=== PATIENT | female | born 1935 | race Caucasian/White ===

== ENCOUNTER 2018-01-15 21:02 | Inpatient (IN) | payer MEDICARE, OTHER ==
[~2018-01-15] VITALS: Ht 165.1 cm; Wt 48.7 kg
[~2018-01-15 21:02] MED LIST: BENA5TAB PO
--- NOTE | 2018-01-15 21:18 | NUR ---
[facility] EMS FROM [facility] FOR HEMATOMA ABOVE LEFT EYE S/P GLF. LEFT FOREARM SKIN TEAR. PT AOX3 NOTED WITH PERIODS OF CONFUSION (BASELINE PER PA) RR EVEN AND UNLABORED. NO SOB NOTED. NAD NOTED. NO NVD AT THIS TIME. PT GOWNED AND PLACED ON MONITOR WAITING FOR MD SCHILLING.
--- NOTE | 2018-01-15 21:30 | NUR ---
PT RETURNED FROM CT.
--- NOTE | 2018-01-15 22:20 | NUR ---
PT RETURNED FROM CT.
--- NOTE | 2018-01-15 22:32 | NUR ---
BS CHECK 69. DR. JACINTO MADE AWARE
--- NOTE | 2018-01-15 22:34 | NUR ---
RADOLOGY AT BEDSIDE FOR CXR
--- NOTE | 2018-01-15 22:37 | NUR ---
BS RECHECK 64. DR. JACINTO MADE AWARE
[2018-01-15] MEDS ORDERED: ASPI-605 PO (22:38)
[2018-01-15] MEDS ORDERED: CHOL100040 PO (22:38)
[2018-01-15] MEDS ORDERED: BENZ0.5T43 PO (22:38)
[2018-01-15] MEDS ORDERED: ACET-868 PO (22:38)
[2018-01-15 22:55] LABS: BASOPHILS % (AUTO) 0.5 % (0.0-2.0); EOSINOPHILS % (AUTO) 1.6 % (0.0-6.0); HEMATOCRIT 38 % (33-45); HEMOGLOBIN 12.6 g/dL (11.5-14.8); LYMPHOCYTES # (AUTO) 1.5 /CMM (0.8-4.8); LYMPHOCYTES % (AUTO) 25.6 % (20.0-44.0); MEAN CORPUSCULAR HGB CONC 33 g/dl (31.0-36.0); MEAN CORPUSCULAR VOLUME 93 fL (82-100); MONOCYTES # (AUTO) 0.6 /CMM (0.1-1.30); MONOCYTES % (AUTO) 9.6 % (2.0-12.0); NEUTROPHILS # (AUTO) 3.7 /CMM (1.8-8.9); NEUTROPHILS % (AUTO) 62.7 % (43.0-81.0); PLATELET COUNT (AUTO) 158 /CMM (150-450); RDW COEFFICIENT OF VARIATION 13.3 (11.5-15.0); RED BLOOD CELL COUNT(AUTO) 4.06 MIL/uL (4.0-5.2)
[2018-01-15] MEDS ORDERED: DEXTROSE 50%-WATER 50 ML DISP.SYRIN ONE (22:55)
[2018-01-15] MEDS ORDERED: DEXTROSE 50%-WATER 50 ML DISP.SYRIN IVP ONE (23:00)
[2018-01-15 23:05] LABS: CALCIUM, SERUM 10.1 mg/dL (8.5-10.1); CARBON DIOXIDE 32 mmol/L (21-32); CHLORIDE 105 mmol/L (98-107); GLUCOSE 67 mg/dL (74-106); POTASSIUM 4.7 mmol/L (3.5-5.1); SODIUM SERUM 139 mmol/L (136-145); UREA NITROGEN, BLOOD 25 mg/dL (7-18)
[2018-01-15 23:09] LABS: INR 0.99 (0.87-1.13)
[2018-01-15 23:11] LABS: ALANINE AMINOTRANSFERASE 32 U/L (12-78); ALBUMIN 3.2 g/dL (3.4-5.0); ALKALINE PHOSPHATASE 77 U/L (46-116); ASPARTATE AMINOTRANSFERASE 26 U/L (15-37); BILIRUBIN,DIRECT 0.1 mg/dL (0.0-0.2); BILIRUBIN,TOTAL 0.4 mg/dL (0.2-1.0); TOTAL PROTEIN, SERUM 6.2 g/dL (6.4-8.2)
[2018-01-15 23:13] LABS: TROPONIN I < 0.017 ng/mL (0.00-0.056)
--- NOTE | 2018-01-15 23:22 | NUR ---
URINE COLLECTED. SENT TO LAB
--- NOTE | 2018-01-15 23:23 | NUR ---
BS RECHECK 141. DR. JACINTO MADE AWARE
[2018-01-15 23:30] LABS: APPEARANCE,URINE CLEAR (CLEAR); BILIRUBIN,URINE NEGATIVE (NEGATIVE); BLOOD, URINE NEGATIVE Ery/uL (NEGATIVE); COLOR,URINE YELLOW (YELLOW); KETONES,URINE NEGATIVE (NEGATIVE); LEUKOCYTE ESTERASE ,URINE 2+ (NEGATIVE); NITRITE, URINE NEGATIVE (NEGATIVE); PH,URINE 6.5 (5.0-8.0); PROTEIN,URINE NEGATIVE (NEGATIVE); UGLUCOSE TRACE mg/dL (NEGATIVE); UROBILINOGEN,URINE 0.2 EU/dL (0.2)
--- NOTE | 2018-01-15 23:44 | NUR ---
REPORT GIVEN TO TAMMIE MOYER FOR TELE BED 307-2.
[2018-01-15 23:51] LABS: BACTERIA,URINE None seen /HPF (None Seen); RBC,URINE NONE SEEN /HPF (0-2); SQUAMOUS EPITHELIAL CELL,UR Few /HPF (None Seen); WBC,URINE 0-2 /HPF (0-3)
[2018-01-16] VITALS (7 sets, daily range): BP systolic 117–153; BP diastolic 56–94
--- NOTE | 2018-01-16 00:08 | NUR ---
PT TRANSFERRED PER ACLS PROTOCOL.
--- NOTE | 2018-01-16 00:10 | NUR ---
RN NOTES RECEIVED PT. FROM ER WITH DX. OF SYNCOPE AND HYPOGLYCEMIA, S/P IN THE SNF PT. IS A/OX2-3, SITTER AT BEDSIDE, SB ON TELE MONITOR HR -43-MD IS AWARE, ADMISSION INSTRUCTION WAS RENDERED, CALL LIGHT WITHIN REACH, SIDERAILSUPX2, CONTINUE TO MONITOR
[2018-01-16] MEDS ORDERED: MAG HYDROX/AL HYDROX/SIMETH 30 ML UDC PO PRN (00:30)
[2018-01-16] MEDS ORDERED: HYDROCODONE/APAP 5/325MG 1 EACH TABLET PO PRN (00:30)
[2018-01-16] MEDS ORDERED: ZOLPIDEM TARTRATE 5 MG TABLET PO PRN (00:30)
[2018-01-16] MEDS ORDERED: ONDANSETRON HCL/PF 4 MG/2 ML VIAL IVP PRN (00:30)
[2018-01-16] MEDS ORDERED: ACETAMINOPHEN 325 MG TABLET PO PRN ×2 (00:30)
[2018-01-16] MEDS ORDERED: MAGNESIUM HYDROXIDE 30 ML UDC PO PRN (00:30)
[2018-01-16] MEDS ORDERED: Z GUARD REMEDY 2 OZ OINT TP PRN (00:30)
--- NOTE | 2018-01-16 07:13 | NUR ---
MS/RN Patient received Patient received from cook night. A/O X2, no respiratory distress noted, vital sings within normal range. Safety measures in places, siderails X3 in upright position, bed alarm switched on, call light within reach. Will continue to monitor and ensure safety.
[2018-01-16] MEDS ORDERED: BENAZEPRIL HCL 5 MG TABLET PO SCH (09:00)
--- NOTE | 2018-01-16 09:00 | NUR ---
MS/RN Medications Morning medications administered as ordered, unable to scan name band, new band requested from admitting. Patient able to state full name, date of .
--- NOTE | 2018-01-16 09:41 | NUR ---
MS/RN S/B Dr Godinez Seen by Dr Godinez: -orthostatic blood pressure -remains SB on monitor without pauses, no permeant pacemaker need identified yet -acute renal failure - hydrate -hypertension - continue with current dosage of benazepril
[2018-01-16] MEDS: ASPIRIN EC 81 MG TABLET.DR PO SCH (09:46)
[2018-01-16] MEDS: BENAZEPRIL HCL 10 MG TABLET PO SCH (09:46)
[2018-01-16 10:31] LABS: BASOPHILS % (AUTO) 0.5 % (0.0-2.0); EOSINOPHILS % (AUTO) 1.8 % (0.0-6.0); HEMATOCRIT 38 % (33-45); HEMOGLOBIN 12.8 g/dL (11.5-14.8); LYMPHOCYTES # (AUTO) 1.1 /CMM (0.8-4.8); LYMPHOCYTES % (AUTO) 21.1 % (20.0-44.0); MEAN CORPUSCULAR HGB CONC 34 g/dl (31.0-36.0); MEAN CORPUSCULAR VOLUME 93 fL (82-100); MONOCYTES # (AUTO) 0.5 /CMM (0.1-1.30); MONOCYTES % (AUTO) 9.1 % (2.0-12.0); NEUTROPHILS # (AUTO) 3.4 /CMM (1.8-8.9); NEUTROPHILS % (AUTO) 67.5 % (43.0-81.0); PLATELET COUNT (AUTO) 157 /CMM (150-450); RDW COEFFICIENT OF VARIATION 13.6 (11.5-15.0); RED BLOOD CELL COUNT(AUTO) 4.08 MIL/uL (4.0-5.2); WHITE BLOOD COUNT (AUTO) 5.1 K/uL (4.3-11.0)
[2018-01-16 10:41] LABS: CARBON DIOXIDE 35 mmol/L (21-32); CHLORIDE 106 mmol/L (98-107); CREATININE 0.8 mg/dL (0.6-1.3); GLUCOSE 107 mg/dL (74-106); POTASSIUM 4.2 mmol/L (3.5-5.1); SODIUM SERUM 141 mmol/L (136-145); UREA NITROGEN, BLOOD 21 mg/dL (7-18)
[2018-01-16 10:46] LABS: ALANINE AMINOTRANSFERASE 29 U/L (12-78); ALBUMIN 2.8 g/dL (3.4-5.0); ALKALINE PHOSPHATASE 71 U/L (46-116); ASPARTATE AMINOTRANSFERASE 24 U/L (15-37); BILIRUBIN,TOTAL 0.5 mg/dL (0.2-1.0); MAGNESIUM 2.7 mg/dL (1.8-2.4); PHOSPHORUS 2.5 mg/dL (2.5-4.9); TOTAL PROTEIN, SERUM 5.9 g/dL (6.4-8.2)
[2018-01-16 10:57] LABS: CHOLESTEROL 168 mg/dL (<200); HDL CHOLESTEROL 67 mg/dL (40-60); LDL 91 mg/dL (0-99); THYROID STIMULATING HORMONE 2.361 uIU/mL (0.358-3.74); TRIGLYCERIDES 76 mg/dL (30-150)
--- NOTE | 2018-01-16 11:30 | NUR ---
MS/RN S/B Dr Thapa Seen by Dr Thapa - labs ordered for tomorrow.
--- NOTE | 2018-01-16 15:02 | NUR ---
MS/RN PT Evaluated by physical therapist - able to ambulate using walker in hallway with standby assist.
--- NOTE | 2018-01-16 18:01 | NUR ---
MS/RN End note Patient remains in stable condition, will endorse to shift lab technician.
--- NOTE | 2018-01-16 19:20 | NUR ---
TELE/RN OPENING NOTES PT RECEIVED AWAKE, RESTING COMFORTABLY IN BED. ON 2L O2 VIA NC, BREATHING EVEN AND UNLABORED. NO S/S OF SOB OR PAIN AT THIS TIME. ON TELE MONITOR SHOWING SB, HR AT 51. SRINIVASAN IV PATENT AND INTACT. BED IN LOW/LOCKED POSITION WITH CALL LIGHT IN REACH. SIDE RAILS UPX2. WILL CONTINUE TO MONITOR
[2018-01-16] MEDS: IV NS 0.9% 1,000 ML IV PRN (20:15)
--- NOTE | 2018-01-16 20:15 | NUR ---
TELE/RN NOTES PT C/O NAUSEA. ADMINISTERED PRN ZOFRAN ORDERED. WILL MONITOR FOR EFFECTIVENESS
[2018-01-16] MEDS: BENZTROPINE MESYLATE (1 MG) 1 MG TABLET PO SCH (21:30)
[2018-01-17] VITALS: BP 130/60
[2018-01-17 04:00] VITALS: BP 134/53
[2018-01-17 06:18] LABS: BASOPHILS % (AUTO) 0.6 % (0.0-2.0); EOSINOPHILS % (AUTO) 1.9 % (0.0-6.0); HEMATOCRIT 36 % (33-45); HEMOGLOBIN 12.3 g/dL (11.5-14.8); LYMPHOCYTES # (AUTO) 1.8 /CMM (0.8-4.8); LYMPHOCYTES % (AUTO) 29.8 % (20.0-44.0); MEAN CORPUSCULAR HGB CONC 34 g/dl (31.0-36.0); MEAN CORPUSCULAR VOLUME 93 fL (82-100); MONOCYTES # (AUTO) 0.5 /CMM (0.1-1.30); MONOCYTES % (AUTO) 8.7 % (2.0-12.0); NEUTROPHILS # (AUTO) 3.7 /CMM (1.8-8.9); PLATELET COUNT (AUTO) 155 /CMM (150-450); RDW COEFFICIENT OF VARIATION 13.4 (11.5-15.0); WHITE BLOOD COUNT (AUTO) 6.2 K/uL (4.3-11.0)
[2018-01-17 06:41] LABS: TROPONIN I < 0.017 ng/mL (0.00-0.056)
[2018-01-17 06:45] LABS: ALANINE AMINOTRANSFERASE 26 U/L (12-78); ALBUMIN 2.8 g/dL (3.4-5.0); ALKALINE PHOSPHATASE 66 U/L (46-116); ASPARTATE AMINOTRANSFERASE 23 U/L (15-37); BILIRUBIN,TOTAL 0.4 mg/dL (0.2-1.0); CALCIUM, SERUM 9.7 mg/dL (8.5-10.1); CARBON DIOXIDE 32 mmol/L (21-32); CHLORIDE 107 mmol/L (98-107); CREATININE 0.8 mg/dL (0.6-1.3); GLUCOSE 76 mg/dL (74-106); MAGNESIUM 1.8 mg/dL (1.8-2.4); PHOSPHORUS 2.7 mg/dL (2.5-4.9); POTASSIUM 4.7 mmol/L (3.5-5.1); SODIUM SERUM 140 mmol/L (136-145); TOTAL PROTEIN, SERUM 5.6 g/dL (6.4-8.2); UREA NITROGEN, BLOOD 21 mg/dL (7-18)
[2018-01-17 06:52] LABS: CHOLESTEROL 166 mg/dL (<200); HDL CHOLESTEROL 62 mg/dL (40-60); LDL 89 mg/dL (0-99); TRIGLYCERIDES 91 mg/dL (30-150)
--- NOTE | 2018-01-17 07:15 | NUR ---
TELE/RN CLOSING NOTES PT AWAKE, RESTING IN BED. A/OX3. ON 1L O2, VIA NC, BREATHING EVEN AND UNLABORED. NO SOB OR DISTRESS NOTED. DENIES PAIN. WOUND CARE PROVIDED ORDERED. ON TELE MONITOR SHOWING SB 47. SRINIVASAN IV RUNNING IVF ORDERED. NO SIGNIFICANT CHANGES OVERNIGHT. BED IN LOW/LOCKED POSITION WITH CALL LIGHT IN REACH. SIDE RAILS UPX2 WITH BED ALARM ON FOR SAFETY. ENDORSED TO DAY SHIFT RN BETSY.
--- NOTE | 2018-01-17 07:17 | NUR ---
MS/RN Patient received Patient received from stitcher special machine. Sleeping soundly at this time, appears in no discomfort or distress. Sitter remains in room for safety. Safety measures in place, will continue to monitor and ensure safety.
[2018-01-17 08:00] VITALS: BP_SYST 124; BP_SYST 126; BP_DIAS 59; BP_DIAS 64
[2018-01-17] MEDS: ASPIRIN EC 81 MG TABLET.DR PO SCH (08:23)
[2018-01-17] MEDS: BENAZEPRIL HCL 10 MG TABLET PO SCH (08:23)
--- NOTE | 2018-01-17 09:05 | NUR ---
MS/RN S/B Dr Godinez Seen by Dr Godinez - telemetry discontinued, labs ordered for tomorrow morning.
--- NOTE | 2018-01-17 10:13 | NUR ---
WOUND CARE CONSULT WOUND CARE RECEIVED CONSULT FOR L ARM SKIN TEAR. WOUND CARE WILL DEFER CONSULT AND ALL TREATMENT PLANS TO SURGICAL TEAM WHO ARE CURRENTLY FOLLOWING. PATIENT WITH MELANIE AT 16, ALL PRESSURE ULCER PREVENTION MEASURES NOTED TO BE IN PLACE.
--- NOTE | 2018-01-17 12:30 | NUR ---
MS/transitional care manager Dressing to left forearm changed as ordered.
[2018-01-17] MEDS: IV NS 0.9% 1,000 ML IV PRN (14:29)
--- NOTE | 2018-01-17 15:59 | NUR ---
MS/RN S/B Dr Espitia Seen by Dr Espitia - to continue with IV fluids.
--- NOTE | 2018-01-17 18:09 | NUR ---
MS/RN End note Patient remains in stable condition, all needs attended. Call light within reach, will endorse to senior partner.
[2018-01-17 20:00] VITALS: BP 108/51
--- NOTE | 2018-01-17 20:10 | NUR ---
MS RN NOTE: PATIENT TRANSFERRED TO ROOM 202 WITH ALL BELONGINGS. PATIENT RESTING IN BED, NO ACUTE DISTRESS NOTED. BREATHING EVEN AND UNLABORED, NO SOB NOTED. IV TO RFA IN PLACE, INFUSING NS AT 125ML/HR. ORIENTED PATIENT TO ROOM. BED LOCK AND IN LOWEST POSITION, CALL LIGHT IN REACH. WILL CONTINUE TO MONITOR.
[2018-01-17] MEDS: BENZTROPINE MESYLATE (1 MG) 1 MG TABLET PO SCH (21:30)
--- NOTE | 2018-01-18 03:30 | NUR ---
MS RN NOTE: PATIENT SLEEPING IN BED, NO ACUTE DISTRESS NOTED. BREATHING EVEN AND UNLABORED, NO SOB NOTED. BED LOCKED AND IN LOWEST POSITION, CALL LIGHT IN REACH, WILL CONTINUE TO MONITOR.
--- NOTE | 2018-01-18 06:10 | NUR ---
MS RN NOTE: PATIENT RESTING IN BED, NO ACUTE DISTRESS NOTED. BREATHING EVEN AND UNLABORED, NO SOB NOTED. IV TO RFA IN PLACE, INFUSING NS AT 125ML/HR. IV TO SRINIVASAN IN PLACE. BED LOCK AND IN LOWEST POSITION, CALL LIGHT IN REACH. WILL ENDORSE TO DAY NURSE TO CONTINUE WITH PLAN OF CARE.
[2018-01-18 06:21] LABS: CALCIUM, SERUM 9.4 mg/dL (8.5-10.1); CARBON DIOXIDE 33 mmol/L (21-32); CHLORIDE 107 mmol/L (98-107); CREATININE 0.9 mg/dL (0.6-1.3); GLUCOSE 75 mg/dL (74-106); MAGNESIUM 1.7 mg/dL (1.8-2.4); PHOSPHORUS 2.8 mg/dL (2.5-4.9); POTASSIUM 4.5 mmol/L (3.5-5.1); SODIUM SERUM 141 mmol/L (136-145); UREA NITROGEN, BLOOD 23 mg/dL (7-18)
[2018-01-18 06:26] LABS: BASOPHILS % (AUTO) 0.8 % (0.0-2.0); EOSINOPHILS % (AUTO) 2.4 % (0.0-6.0); HEMATOCRIT 37 % (33-45); HEMOGLOBIN 12.6 g/dL (11.5-14.8); LYMPHOCYTES # (AUTO) 1.3 /CMM (0.8-4.8); LYMPHOCYTES % (AUTO) 28.7 % (20.0-44.0); MEAN CORPUSCULAR HGB CONC 34 g/dl (31.0-36.0); MEAN CORPUSCULAR VOLUME 92 fL (82-100); MONOCYTES # (AUTO) 0.4 /CMM (0.1-1.30); NEUTROPHILS # (AUTO) 2.8 /CMM (1.8-8.9); NEUTROPHILS % (AUTO) 59.1 % (43.0-81.0); PLATELET COUNT (AUTO) 146 /CMM (150-450); RDW COEFFICIENT OF VARIATION 13.4 (11.5-15.0); RED BLOOD CELL COUNT(AUTO) 3.98 MIL/uL (4.0-5.2); WHITE BLOOD COUNT (AUTO) 4.7 K/uL (4.3-11.0)
--- NOTE | 2018-01-18 07:40 | NUR ---
M/S RN - Assessment Patient awake, A/ O x 3, denies pain, no c/o dizziness, not in any form of distress, slept well last night. IVF NS at 125 ml/hr infusing well on the RFA with no signs of infiltration. Labs reviewed noted with low magnesium level today 1.7, will notify Md. Fall and aspiration precautions maintained. All needs attended and met. Will continue with current medical management.
[2018-01-18 08:00] VITALS: BP 136/53
[2018-01-18] MEDS: ASPIRIN EC 81 MG TABLET.DR PO SCH (08:15)
[2018-01-18] MEDS: BENAZEPRIL HCL 10 MG TABLET PO SCH (08:15)
[2018-01-18] MEDS: Magnesium 1GM/D5W 100ML PREMIX 100 ML IV SCH ×2 (10:46→11:50)
[2018-01-18 16:00] VITALS: BP 141/71
--- NOTE | 2018-01-18 17:35 | NUR ---
M/S RN - Discharge Patient feeling better, A/O x 2-3, discharged to [facility] in stable condition. Reviewed discharge instructions with TAMMIE Kim and she verbalized full understanding and all questions answered to her satisfaction. All belongings with the patient and she denies any missing items. VSS, denies pain, afebrile, denies dizziness, no c/o SOB, tolerating room air, no apparent distress seen. No fall/injury during hospital stay. Heplock removed on the RFA and SRINIVASAN both catheter tip intact, no redness and no swelling noted at the site. Photos taken on all skin breakdown. Discharge papers sent with ambulance crew. Daughter Monika aware of discharge.
== END 2018-01-18 17:35 | DRG 73 ==
LOC: ER 21:13 → TELE 23:54 → MED 01-17 09:09 → MEDSG2 01-17 19:15
PROVIDERS: ADMIT Internal Medicine; ATTEND Internal Medicine Nephrology
DX: G90.8 Other disorders of autonomic nervous system (principal); E43 Unspecified severe protein-calorie malnutrition; N17.0 Acute kidney failure with tubular necrosis; E86.0 Dehydration; F03.90 Unspecified dementia, unspecified severity, without behavioral disturbance, psychotic disturbance, mood disturbance, and anxiety; G20 Parkinson's disease; Z68.1 Body mass index [BMI] 19.9 or less, adult; W18.30XA Fall on same level, unspecified, initial encounter; E16.2 Hypoglycemia, unspecified; I10 Essential (primary) hypertension; K21.9 Gastro-esophageal reflux disease without esophagitis; F29 Unspecified psychosis not due to a substance or known physiological condition; Z86.73 Personal history of transient ischemic attack (TIA), and cerebral infarction without residual deficits; S00.83XA Contusion of other part of head, initial encounter; Y92.89 Other specified places as the place of occurrence of the external cause; S51.812A Laceration without foreign body of left forearm, initial encounter; L98.8 Other specified disorders of the skin and subcutaneous tissue; F20.9 Schizophrenia, unspecified; F31.9 Bipolar disorder, unspecified; R13.10 Dysphagia, unspecified
CPT/HCPCS: 36415; 70450-TC; 71045-TC; 72125-TC; 80048-TC; 80053-TC; 80061-TC; 80076-TC; 81000-TC; 82962-TC; 83735-TC; 84100-TC; 84439-TC; 84443-TC; 84484-TC; 85025-TC; 85730-TC; 86850-TC; 87081-TC; 87086-TC; 92521; 93307-TC; 93880-TC; A4606; A6253; J2405; J3475; J7030; L0172; Z7610

== ENCOUNTER 2018-08-09 11:51 | Inpatient (IN) | payer OTHER ==
[2018-08-09] VITALS (24 sets, daily range): BP systolic 126–175; BP diastolic 45–81
[~2018-08-09] VITALS: Ht 167.6 cm; Wt 51.3 kg
[~2018-08-09 11:51] MED LIST changes: +ACET-868 PO; +ASPI-605 PO; +BENZ0.5T43 PO; +CHOL100040 PO
--- NOTE | 2018-08-09 12:00 | NUR ---
PT DEBBY FROM [facility]. GLF, -KO PER EMS REPORT. RIGHT EYEBROW LAC. PT ON MONITOR IN BED 3. WILL CONTINUE TO MONITOR.
[2018-08-09 12:27] LABS: BASOPHILS # (AUTO) 0.1 /CMM (0.0-0.2); BASOPHILS % (AUTO) 0.9 % (0.0-2.0); HEMATOCRIT 45 % (33-45); LYMPHOCYTES # (AUTO) 1.3 /CMM (0.8-4.8); LYMPHOCYTES % (AUTO) 19.7 % (20.0-44.0); MEAN CORPUSCULAR HGB CONC 33 g/dl (31.0-36.0); MEAN CORPUSCULAR VOLUME 95 fL (82-100); MONOCYTES # (AUTO) 0.5 /CMM (0.1-1.30); MONOCYTES % (AUTO) 7.8 % (2.0-12.0); NEUTROPHILS # (AUTO) 4.6 /CMM (1.8-8.9); NEUTROPHILS % (AUTO) 69.6 % (43.0-81.0); PLATELET COUNT (AUTO) 136 /CMM (150-450); RED BLOOD CELL COUNT(AUTO) 4.77 MIL/uL (4.0-5.2); WHITE BLOOD COUNT (AUTO) 6.6 K/uL (4.3-11.0)
[2018-08-09] MEDS ORDERED: ACETAMINOPHEN ES 500 MG TABLET PO ONE (12:30)
[2018-08-09] MEDS ORDERED: TDAP [DIPH/PERTUSSIS/TET] 0.5 ML VIAL IM ONE ×2 (12:30→12:32)
[2018-08-09] MEDS ORDERED: ACETAMINOPHEN ES 500 MG TABLET ONE ×2 (12:32→12:35)
[2018-08-09 12:44] LABS: ALANINE AMINOTRANSFERASE 67 U/L (12-78); ALBUMIN 3.4 g/dL (3.4-5.0); ALKALINE PHOSPHATASE 95 U/L (46-116); ASPARTATE AMINOTRANSFERASE 44 U/L (15-37); BILIRUBIN,DIRECT 0.1 mg/dL (0.0-0.2); BILIRUBIN,TOTAL 0.6 mg/dL (0.2-1.0); CALCIUM, SERUM 10.1 mg/dL (8.5-10.1); CARBON DIOXIDE 34 mmol/L (21-32); CHLORIDE 103 mmol/L (98-107); CREATININE 0.9 mg/dL (0.6-1.3); GLUCOSE 84 mg/dL (74-106); POTASSIUM 4.9 mmol/L (3.5-5.1); SODIUM SERUM 139 mmol/L (136-145); TOTAL PROTEIN, SERUM 6.9 g/dL (6.4-8.2); UREA NITROGEN, BLOOD 26 mg/dL (7-18)
--- NOTE | 2018-08-09 12:49 | NUR ---
PT TAKEN TO RADIOLOGY VIA JENI
--- NOTE | 2018-08-09 13:03 | NUR ---
GUALBERTO, POWER OF CINDER DUMP CRANE OPERATOR, CALLED FOR STATUS. CONTACT INFO FOR ANY UPDATES: [phone].
--- NOTE | 2018-08-09 13:16 | NUR ---
DR FRANKS CALLED AND SPOKE WITH DR HILARIO
--- NOTE | 2018-08-09 13:17 | NUR ---
RADIOLOGY AT BEDSIDE FOR XRAY
[2018-08-09] MEDS ORDERED: ENALAPRILAT INJ (1.25 MG/ML) 1.25 MG/ML VIAL IV STA (13:19)
[2018-08-09] MEDS ORDERED: ENALAPRILAT DIHYD. (2.5MG/ML) 1.25 MG/ML VIAL IV ONE (13:25)
[2018-08-09] MEDS ORDERED: CLON0.1T PO (13:50)
[2018-08-09] MEDS ORDERED: ASPI-1169 PO (13:50)
--- NOTE | 2018-08-09 13:50 | NUR ---
ICU 260
[2018-08-09] MEDS ORDERED: NICARDIPINE IN DEXTROSE,ISO-OS 200 ML IV ONE (14:30)
--- NOTE | 2018-08-09 14:34 | NUR ---
REPORT GIVEN TO ICU NURSE FOR BETSY
[2018-08-09] MEDS ORDERED: BENA20TA9 PO (14:42)
[2018-08-09] MEDS ORDERED: AMIN887L PO (14:42)
[2018-08-09] MEDS ORDERED: DOCU-141 PO (14:42)
[2018-08-09] MEDS ORDERED: MAG30ORA PO (14:42)
[2018-08-09] MEDS ORDERED: CRAN425C6 PO (14:42)
[2018-08-09] MEDS ORDERED: MAGN400O21 PO (14:42)
[2018-08-09] MEDS: NICARDIPINE IN DEXTROSE,ISO-OS 200 ML IV PRN ×2 (14:49→15:30)
--- NOTE | 2018-08-09 15:15 | NUR ---
TAX EVALUATOR NOTE: RECEIVED PATIENT FROM ER VIA GURNEY. PATIENT WAS AWAKE, VERBALLY RESPONSIVE WITH INTERMITTENT CONFUSION. RESPIRATION EVEN AND UNLABORED SATURATING 98% IN ROOM AIR. DENIED ANY PAIN. PATIENT WAS ALERT TO HER NAME, UNABLE TO STATE WHAT HAPPENED TO HER. PATIENT WAS TRANSFERRED TO THE BED IN ROOM 260. HOB ELEVATED AT 35 DEGREE. COMPLETE BODY ASSESSMENT DONE. BED ALARMED AND LOCKED AT ALL TIMES. PATIENT PLACED CLOSED TO THE NURSING STATION FOR CLOSE MONITORING OF STAFF. CALL LIGHT WITHIN REACH AND NEEDS ANTICIPATED.
--- NOTE | 2018-08-09 15:30 | NUR ---
MAURA RN NOTE: CALLED THE FACILITY [facility] AND WAS ABLE TO SPEAK WITH ASHLEY CARPIO AND REQUESTED TO FAX THE POLST OF THE PATIENT. ASHLEY HANDED THE PHONE TO DR. SOLITARIO AND ACCORDING TO HIM, HE WANTED TO KEEP HIS PATIENT UNDER HIS CARE AND HE WILL FOLLOW-UP ON THE PATIENT'S CARE. WAS INFORMED THAT ER ADMITTING WILL BE INFORMED ABOUT IT. MD WAS AWARE OF THE PATIENT'S ELEVATED BLOOD PRESSURE UPON ADMISSION. HE WAS AWARE OF THE CARDENE IV DRIP RECEIVED FROM ER AT THE RATE OF 2.5 MG/HR. PER MD, HE WANTED TO CONTINUE THE PATIENT ON THE CARDENE DRIP AND TITRATE TO KEEP SBP <140. CARDENE IV BAG FROM ER WAS CONTINUED IN THE UNIT. PATIENT'S GRANDDAUGHTER WAS PRESENT AT THE BEDSIDE AND AWARE ABOUT THE CONDITION OF THE PATIENT.
[2018-08-09] MEDS ORDERED: ACETAMINOPHEN 325 MG TABLET PO PRN (16:30)
[2018-08-09] MEDS ORDERED: MAG HYDROX/AL HYDROX/SIMETH 30 ML UDC PO PRN ×2 (16:30→23:00)
[2018-08-09] MEDS ORDERED: IV NS 0.9% 1,000 ML BAG IV PRN (16:30)
[2018-08-09] MEDS ORDERED: HYDROCODONE/APAP 5/325MG 1 EACH TABLET PO PRN (16:30)
[2018-08-09] MEDS ORDERED: Z GUARD REMEDY 2 OZ OINT TP PRN (16:30)
[2018-08-09] MEDS ORDERED: ZOLPIDEM TARTRATE 5 MG TABLET PO PRN (16:30)
[2018-08-09] MEDS ORDERED: MAGNESIUM HYDROXIDE 30 ML UDC PO PRN (16:30)
[2018-08-09] MEDS ORDERED: ONDANSETRON HCL/PF 4 MG/2 ML VIAL IVP PRN (16:30)
[2018-08-09] MEDS ORDERED: BENAZEPRIL HCL 10 MG TABLET PO ONE (16:30)
[2018-08-09] MEDS: IV NS 0.9% 1,000 ML IV PRN (17:03)
--- NOTE | 2018-08-09 19:00 | NUR ---
MAURA RN NOTE: PATIENT WAS NOTED WITH SEVERAL ATTEMPTS OF TRYING TO GET OUT OF THE BED AND WAS TRYING TO REMOVE HER IV LINES. DR. SOLITARIO MADE AWARE WITH ORDER TO PLACE A (B) SOFT WRIST RESTRAINT ON THE PATIENT FOR SAFETY.
--- NOTE | 2018-08-09 19:30 | NUR ---
MAURA RN NOTE: REPORT GIVEN TO PM SHIFT NURSE FOR CONTINUITY OF CARE.
--- NOTE | 2018-08-09 19:30 | NUR ---
RESIDENTIAL ELECTRICIAN NOTE PT RECEIVED ASLEEP BUT EASILY AROUSABLE TO NAME AND TOUCH. NOTED WITH CONFUSION AND UNCLEAR WORDS. ON ROOM AIR AND SATURATING 97%. BREATHING EVEN AND UNLABORED. TELE-SR 70'S. BRAYAN C/O PAIN OR DISCOMFORT NOTED. HOB ELEVATED. IV CLEAN, DRY WITH CARDENE INFUSING @ 1.5MG/HR. BILATERAL SOFT WRIST RESTRAINTS IN PLACE. CAP REFILL PRESENT, PALPABLE PULSES BILATERALLY AND NO DISCOLORATION NOTED. BED ALARM ENABLED AND BED LOCKED IN PLACE. CALL LIGHT WITHIN REACH. WILL CONTINUE TO MONITOR AND FREQUENT RE-ORIENTATION.
--- NOTE | 2018-08-09 22:00 | NUR ---
ROLLER INSPECTOR AND MENDER NOTE PT NOTED WITH 1 EPISODE OF EMESIS LIGHT BROWN WITH GASTRIC JUICES AND NAUSEA. ZOFRAN 4MG IVP GIVEN X1 NOW. HOB ELEVATED AND ON ASPIRATION PRECAUTIONS. WILL MONITOR.
[2018-08-09] MEDS ORDERED: CLONIDINE HCL 0.1 MG TABLET PO PRN (23:00)
[2018-08-10] VITALS (68 sets, daily range): BP systolic 91–152; BP diastolic 40–112
[2018-08-10 00:35] LABS: ABG BASE EXCESS 1.5 mmol/L; ABG OXYGEN SATURATION 96.5 % (92.0-98.5); ABG PCO2 43.9 mmHg (35.0-45.0); ABG PH 7.401 (7.350-7.450); ABG PO2 90.4 mmHg (75.0-100.0); AaDO2 6.8 mmHg; COHb 0.8 % (0.5-1.5); MetHb 0.6 % (0.0-1.5); O2Hb 95.1 % (94.0-97.0); SITE, ABG Right Radial; VENT MODE, BG ROOM AIR
[2018-08-10] MEDS: NICARDIPINE IN DEXTROSE,ISO-OS 200 ML IV PRN ×3 (00:43→16:11)
[2018-08-10] MEDS: IV NS 0.9% 1,000 ML IV PRN ×2 (03:53→13:47)
[2018-08-10 04:55] LABS: APPEARANCE,URINE SL CLOUDY (CLEAR); BILIRUBIN,URINE NEGATIVE (NEGATIVE); BLOOD, URINE NEGATIVE Ery/uL (NEGATIVE); COLOR,URINE YELLOW (YELLOW); KETONES,URINE 1+ (NEGATIVE); LEUKOCYTE ESTERASE ,URINE 2+ (NEGATIVE); NITRITE, URINE POSITIVE (NEGATIVE); PROTEIN,URINE NEGATIVE (NEGATIVE); UGLUCOSE NEGATIVE (NEGATIVE); UROBILINOGEN,URINE 0.2 EU/dL (0.2)
[2018-08-10 05:10] LABS: BASOPHILS % (AUTO) 0.1 % (0.0-2.0); HEMATOCRIT 39 % (33-45); HEMOGLOBIN 13.2 g/dL (11.5-14.8); LYMPHOCYTES # (AUTO) 0.5 /CMM (0.8-4.8); LYMPHOCYTES % (AUTO) 4.6 % (20.0-44.0); MEAN CORPUSCULAR HGB CONC 33 g/dl (31.0-36.0); MEAN CORPUSCULAR VOLUME 93 fL (82-100); MONOCYTES # (AUTO) 0.5 /CMM (0.1-1.30); MONOCYTES % (AUTO) 4.4 % (2.0-12.0); NEUTROPHILS # (AUTO) 9.5 /CMM (1.8-8.9); NEUTROPHILS % (AUTO) 90.9 % (43.0-81.0); PLATELET COUNT (AUTO) 128 /CMM (150-450); RED BLOOD CELL COUNT(AUTO) 4.25 MIL/uL (4.0-5.2); WHITE BLOOD COUNT (AUTO) 10.4 K/uL (4.3-11.0)
[2018-08-10 05:25] LABS: CHOLESTEROL 171 mg/dL (<200); HDL CHOLESTEROL 74 mg/dL (40-60); LDL 95 mg/dL (0-99); TRIGLYCERIDES 39 mg/dL (30-150)
[2018-08-10 05:28] LABS: CALCIUM, SERUM 9.6 mg/dL (8.5-10.1); CARBON DIOXIDE 29 mmol/L (21-32); CHLORIDE 105 mmol/L (98-107); CREATININE 0.8 mg/dL (0.6-1.3); GLUCOSE 109 mg/dL (74-106); MAGNESIUM 1.4 mg/dL (1.8-2.4); POTASSIUM 4.3 mmol/L (3.5-5.1); SODIUM SERUM 141 mmol/L (136-145); UREA NITROGEN, BLOOD 22 mg/dL (7-18)
[2018-08-10 06:22] LABS: BACTERIA,URINE Many /HPF (None Seen); RBC,URINE 0-2 /HPF (0-2)
[2018-08-10 06:23] LABS: SQUAMOUS EPITHELIAL CELL,UR Few /HPF (None Seen)
[2018-08-10] MEDS ORDERED: PANTOPRAZOLE 40 MG TABLET.DR PO SCH (07:30)
--- NOTE | 2018-08-10 07:31 | NUR ---
CLEANER AND POLISHER NOTE PT REMAINED STABLE DURING SHIFT. NO ACUTE DISTRESS NOTED. ALL NEEDS ATTENDED TO PROMPTLY. BILATERAL SOFT WRIST RESTRAINTS IN PLACE AND PULSES PALPABLE. BED LOCKED IN PLACE. HOB ELEVATED. NO C/O NAUSEA OR VOMIT AT THIS TIME. WILL ENDORSE TO NEXT SHIFT FOR CONTINUITY OF CARE.
--- NOTE | 2018-08-10 08:00 | NUR ---
ICU/RN: INITIAL NOTES,AM RECEIVED REPORT FROM NIGHT NURSE. PT ALERTX1. OPENS EYES TO NAME AND REACTS TO STIMULI. DOES NOT FOLLOW COMMANDS. SPEECH IS GARBLED AND DIFFICULT TO UNDERSTAND. PT ON TELE, SINUS. ON ROOM AIR, NO RESPIRATORY DISTRESS NOTED. ON BILATERAL SOFT WRIST RESTRAINTS, PT ATTEMPTING TO GET OUT OF BED. RESTRAINTS ASSESSED PER PROTOCOL. PER MD ORDERS CARDENE DRIP INFUSING PER PROTOCOL, IV FLUIDS INFUSING PER PROTOCOL. ALL NEEDS WILL BE ATTENDED TO, SAFETY MEASURES TAKEN, BED IN LOW POSITION, SIDE RAILS UP, CALL LIGHT WITHIN REACH. WILL CONTINUE TO MONITOR AND ASSESS.
[2018-08-10] MEDS: DOCUSATE SODIUM 100 MG CAPSULE PO SCH ×2 (08:46→16:11)
[2018-08-10] MEDS ORDERED: PANTOPRAZOLE 40 MG VIAL IV SCH (09:00)
[2018-08-10] MEDS ORDERED: BENAZEPRIL HCL 20 MG TABLET PO SCH (09:00)
--- NOTE | 2018-08-10 09:30 | NUR ---
ICU/RN: RECEIVED TLO ORDERS TO INSERT GERONIMO CATH FOR STRICT INTAKE AND OUTPUT. WILL FOLLOW THROUGH.
[2018-08-10] MEDS: Magnesium 1GM/D5W 100ML PREMIX 100 ML IV SCH ×4 (11:37→16:10)
[2018-08-10] MEDS ORDERED: LEVETIRACETAM (500MG) 500 MG in IV NS 0.9% 100 ML IV SCH (15:00)
--- NOTE | 2018-08-10 15:45 | NUR ---
ICU/RN: PT TAKEN CT HEAD AND FACE WITH ACLS GUIDELINES. NO ACUTE DISTRESS NOTED. VSS. PT BACK IN ROOM. RESTING COMFORTABLY. NO DISTRESS
--- NOTE | 2018-08-10 16:00 | NUR ---
ICU/RN: [id number]-RECEIVED CALL FROM RADIOLOGIST FOR A CRITICAL HEAD CT RESULT. COMPARED TO YESTERDAYS STUDY THE HEMORRHAGE HAS EXPANDED. DETAILED RESULTS IN IMAGING. 1600-INFORMED AND ONEAL WILLETT, NEURO SURGERY OPHTHALMIC ASSISTANT. POSSIBLE TRANSFER TO [facility]. WILL CALL JUSTINA GUALBERTO(GRAND-DAUGHTER TO DISCUSS)
[2018-08-10] MEDS ORDERED: NEOMY SULF/BACITRAC ZN/POLY 15 GM TUBE TP SCH (16:30)
--- NOTE | 2018-08-10 17:30 | NUR ---
ICU/RN: AMBULANCE AT BEDSIDE. PT WILL BE TRANSFERRED TO [facility] FOR HIGHER LEVEL OF CARE. SPOKE TO GUALBERTO, GRAND DAUGHTER, RECEIVED TELEPHONE CONSENT FOR TRANSFER, VERIFIED WITH ANOTHER RN, CLAIRE LAUGHLIN. REPORT ENDORSED TO DATA MANAGEMENT ENGINEER. PT WILL BE TRANSPORTED ON CARDENE DRIP, 3.5 MG/HR. IV FLUIDS INFUSING AT 100 ML/HR. CALLED [facility], ENDORSED REPORT TO TAMMIE CAMPUZANO PT TRANSFERRED STAT FOR HIGHER LEVEL OF CARE, CRITICAL CONDITION, UNABLE TO TAKE PHOTOS OF WOUNDS, ADMISSION PHOTOS TAKEN LESS THEN 24 HOURS AGO. IN CHART.
[2018-08-10] MEDS ORDERED: BENA10TA9 PO (17:51)
[2018-08-10] MEDS ORDERED: LEVE1000 PO (17:51)
== END 2018-08-10 18:01 | disposition short-term general hospital (02) | DRG 85 ==
LOC: ER 11:53 → ICU 14:18
PROVIDERS: ADMIT Nurse Practitioner Acute Care; ATTEND Internal Medicine
DX: S06.5X0A Traumatic subdural hemorrhage without loss of consciousness, initial encounter (principal); G93.6 Cerebral edema; G93.40 Encephalopathy, unspecified; Y92.89 Other specified places as the place of occurrence of the external cause; Z86.73 Personal history of transient ischemic attack (TIA), and cerebral infarction without residual deficits; E86.0 Dehydration; Z79.82 Long term (current) use of aspirin; G20 Parkinson's disease; F02.80 Dementia in other diseases classified elsewhere, unspecified severity, without behavioral disturbance, psychotic disturbance, mood disturbance, and anxiety; I25.10 Atherosclerotic heart disease of native coronary artery without angina pectoris; I10 Essential (primary) hypertension; Z88.8 Allergy status to other drugs, medicaments and biological substances; Z79.899 Other long term (current) drug therapy; W01.0XXA Fall on same level from slipping, tripping and stumbling without subsequent striking against object, initial encounter; Y93.01 Activity, walking, marching and hiking; D69.6 Thrombocytopenia, unspecified; M19.90 Unspecified osteoarthritis, unspecified site; S50.811A Abrasion of right forearm, initial encounter; S01.511A Laceration without foreign body of lip, initial encounter; S01.111A Laceration without foreign body of right eyelid and periocular area, initial encounter; K21.9 Gastro-esophageal reflux disease without esophagitis; M85.80 Other specified disorders of bone density and structure, unspecified site; S05.11XA Contusion of eyeball and orbital tissues, right eye, initial encounter
CPT/HCPCS: 36415; 36600; 70450-TC; 70486-TC; 71045-TC; 72125-TC; 72170-TC; 80048-TC; 80061-TC; 80076-TC; 81000-TC; 82803-TC; 83735-TC; 84100-TC; 84484-TC; 85025-TC; 85730-TC; 86850-TC; 87081-TC; 87086-TC; 87186-TC; 90715; A4606; A6402; C9113; G0378; J1953; J2405; J3475; J3490; J7030; Z7610